=== PATIENT | male | born 1980 | race Caucasian/White ===

== ENCOUNTER 2017-06-21 17:06 | Emergency (ER) | payer OTHER ==
[~2017-06-21] VITALS: Ht 165.1 cm; Wt 77.1 kg
[2017-06-21 17:06] VITALS: BP_SYST 121
== END 2017-06-21 17:30 | disposition home or self-care (01) ==
LOC: SED 17:06
DX: Z76.0 Encounter for issue of repeat prescription (principal); F31.9 Bipolar disorder, unspecified; J45.909 Unspecified asthma, uncomplicated; Z88.8 Allergy status to other drugs, medicaments and biological substances
CPT/HCPCS: 99283

== ENCOUNTER 2017-10-02 07:52 | Emergency (ER) | payer OTHER, MEDICAID ==
[~2017-10-02] VITALS: Ht 165.1 cm; Wt 77.1 kg
[2017-10-02 07:54] VITALS: BP_SYST 123
[2017-10-02] MEDS ORDERED: LEVALBUTEROL HCL 0.63 MG/3 ML VIAL.NEB INH ONE (08:15)
[2017-10-02 08:45] VITALS: BP_SYST 120
== END 2017-10-02 08:45 | disposition home or self-care (01) ==
LOC: SED 07:52
DX: J45.901 Unspecified asthma with (acute) exacerbation (principal); J30.9 Allergic rhinitis, unspecified; Z88.8 Allergy status to other drugs, medicaments and biological substances
CPT/HCPCS: 94640; 99283; J7614

== ENCOUNTER 2019-09-30 20:05 | Emergency (ER) | payer OTHER, MEDICAID ==
[~2019-09-30] VITALS: Ht 165.1 cm; Wt 88.9 kg
[2019-09-30 20:33] VITALS: BP_SYST 154
[2019-09-30 20:59] LABS: BILIRUBIN,URINE NEGATIVE (NEGATIVE); BLOOD, URINE 1+ (NEGATIVE); CLARITY/URINE CLEAR (CLEAR); COLOR,URINE YELLOW (YELLOW); GLUCOSE,URINE NEGATIVE (NEGATIVE); KETONES,URINE NEGATIVE (NEGATIVE); LEUKOCYTE ESTERASE ,URINE NEGATIVE (NEGATIVE); NITRITE, URINE NEGATIVE (NEGATIVE); PROTEIN URINE NEGATIVE (NEGATIVE); UROBILINOGEN,URINE 0.2 (0.2-1.0)
[2019-09-30 21:15] LABS: BASOPHILS # (AUTO) 0.1 K/uL (0.0-0.2); EOSINOPHILS # (AUTO) 0.1 K/uL (0.0-0.4); EOSINOPHILS % (AUTO) 1.5 % (0.0-4.0); HEMATOCRIT 45.6 % (36-54); HEMOGLOBIN 15.4 g/dL (14.0-18.0); LYMPHOCYTES % (AUTO) 22.7 % (20.5-51.5); MEAN CORPUSCULAR HEMOGLOBIN 29 pg (27-31); MEAN CORPUSCULAR HGB CONC 34 % (32-36); MEAN CORPUSCULAR VOLUME 87 fL (79.0-98.0); MONOCYTES # (AUTO) 0.7 K/uL (0.0-1.0); MONOCYTES % (AUTO) 7.5 % (1.7-9.3); NEUTROPHILS % (AUTO) 67.3 % (40.0-70.0); PLATELET COUNT (AUTO) 284 K/uL (130-430); RED BLOOD CELL COUNT(AUTO) 5.23 MIL/uL (4.2-6.2); RED CELL DISTRIBUTION WIDTH 13.1 % (9.0-15.0); WHITE BLOOD COUNT (AUTO) 8.9 K/uL (4.8-10.8)
[2019-09-30 21:35] LABS: CALCIUM 8.6 mg/dL (8.4-11.0); CREATININE 0.91 mg/dL (0.55-1.30); POTASSIUM 3.4 mmol/L (3.5-5.1)
[2019-09-30 21:36] LABS: BACTERIA,URINE None Seen /HPF (None Seen); WBC,URINE NONE SEEN /HPF (0-3)
[2019-09-30 21:41] LABS: TOTAL BILIRUBIN 0.3 mg/dL (0.0-1.0)
== END 2019-09-30 22:30 | disposition left against medical advice (07) ==
LOC: SED 20:05
DX: R53.1 Weakness (principal); Z53.21 Procedure and treatment not carried out due to patient leaving prior to being seen by health care provider
CPT/HCPCS: 36415; 80053; 81000-TC; 85025

== ENCOUNTER 2019-12-11 16:02 | Emergency (ER) | payer OTHER, MEDICAID ==
--- NOTE | 2019-12-11 16:10 | NUR ---
Called patient x 1 , no answer
--- NOTE | 2019-12-11 16:20 | NUR ---
Called patient x 2 , no answer
--- NOTE | 2019-12-11 17:08 | NUR ---
Called patient x 3, no answer
== END 2019-12-11 16:10 | disposition left against medical advice (07) ==
LOC: SED 16:02
DX: Z00.8 Encounter for other general examination (principal); Z53.21 Procedure and treatment not carried out due to patient leaving prior to being seen by health care provider

== ENCOUNTER 2020-02-23 05:11 | Emergency (ER) | payer OTHER, MEDICAID ==
[~2020-02-23] VITALS: Ht 167.6 cm; Wt 74.8 kg
[2020-02-23 05:11] VITALS: BP_SYST 130
--- NOTE | 2020-02-23 05:11 | NUR ---
Placed in room 8 . Placed on ekg monitor, blood pressure machine and pulse oximeter. To gown for exam. Side rails up.
--- NOTE | 2020-02-23 05:15 | NUR ---
PT PRESENTS FROM HOME WITH CHEST PAIN NON-RADIATING. REPORTS WAKING UP 1 HOUR PRIOR TO ARRIVAL WITH 2/10 CHEST PAIN. DENIES ANY CARDIAC HX. REPORTS HX OF DEPRESSION AND ANXIETY. AAOX4, V/S STABLE
--- NOTE | 2020-02-23 05:20 | NUR ---
ER DR. NIEVES AT THE BEDSIDE EVALUATING PT
[2020-02-23] MEDS ORDERED: ASPIRIN 81 MG TAB.CHEW PO ONE (05:30)
--- NOTE | 2020-02-23 05:58 | NUR ---
Patient does not wish to proceed with medical care recommended by DR. NIEVES. Patient given information related to possible complications, up to and including , which could occur as a result of leaving hospital at this time. Patient verbalizes understanding of risks involved leaving against medical advice. Patient has signed AMA form.
== END 2020-02-23 05:58 | disposition left against medical advice (07) ==
LOC: SED 05:11
DX: R07.89 Other chest pain (principal); Z53.29 Procedure and treatment not carried out because of patient's decision for other reasons; J45.909 Unspecified asthma, uncomplicated; Z88.6 Allergy status to analgesic agent
CPT/HCPCS: 71045; 93005; 99283

== ENCOUNTER 2020-06-09 23:04 | Emergency (ER) | payer BC, MEDICAID ==
[~2020-06-09] VITALS: Ht 167.6 cm; Wt 90.7 kg
[2020-06-09 23:05] VITALS: BP_SYST 146
== END 2020-06-10 00:31 | disposition left against medical advice (07) ==
LOC: SED 23:04
DX: M79.673 Pain in unspecified foot (principal); Z53.21 Procedure and treatment not carried out due to patient leaving prior to being seen by health care provider

== ENCOUNTER 2021-08-03 15:16 | Emergency (ER) | payer BC, MEDICAID ==
--- NOTE | 2021-08-03 15:30 | NUR ---
Patient to ER bed 6 to gown for evaluation. Side rails up. Report given to SAMSON MERRITT.
[2021-08-03 15:40] VITALS: BP_SYST 139
--- NOTE | 2021-08-03 16:41 | NUR ---
PT ELOPED FOR ED. PD CALLED. PT'S CALLED TO ADVISE PT IS EN ROUTE HOME.
== END 2021-08-03 16:41 | disposition left against medical advice (07) ==
LOC: SED 15:16
DX: S93.402A Sprain of unspecified ligament of left ankle, initial encounter (principal); J45.909 Unspecified asthma, uncomplicated; F31.9 Bipolar disorder, unspecified; F20.9 Schizophrenia, unspecified; Z88.8 Allergy status to other drugs, medicaments and biological substances; Z79.899 Other long term (current) drug therapy; W10.8XXA Fall (on) (from) other stairs and steps, initial encounter; Y93.89 Activity, other specified; Y92.89 Other specified places as the place of occurrence of the external cause; Y99.8 Other external cause status
CPT/HCPCS: 93005; 99283

== ENCOUNTER 2021-08-13 09:20 | Emergency (ER) | payer BC, MEDICAID ==
[~2021-08-13] VITALS: Ht 165.1 cm; Wt 93.0 kg
[2021-08-13 09:20] VITALS: BP_SYST 133
[2021-08-13 09:25] VITALS: BP_SYST 133
[2021-08-13] MEDS ORDERED: TETRACAINE HCL/PF 0.5% OPHTHALMIC DROPS 4 ML OP ONE (09:30)
[2021-08-13] MEDS ORDERED: FLUORESCEIN SODIUM 1 MG OPHTHALMIC STRIP OP ONE (09:30)
== END 2021-08-13 09:25 | disposition home or self-care (01) ==
LOC: SED 09:20
DX: Z02.89 Encounter for other administrative examinations (principal)

== ENCOUNTER 2021-09-29 00:27 | Emergency (ER) | payer BC, MEDICAID ==
[~2021-09-29] VITALS: Ht 165.1 cm; Wt 90.7 kg
[2021-09-29 00:30] VITALS: BP_SYST 146
== END 2021-09-29 02:30 | disposition left against medical advice (07) ==
LOC: SED 00:27
DX: S99.921A Unspecified injury of right foot, initial encounter (principal); Z53.21 Procedure and treatment not carried out due to patient leaving prior to being seen by health care provider; X58.XXXA Exposure to other specified factors, initial encounter; Y93.89 Activity, other specified; Y92.89 Other specified places as the place of occurrence of the external cause; Y99.8 Other external cause status

== ENCOUNTER 2021-10-12 16:06 | Emergency (ER) | payer BC, MEDICAID ==
[~2021-10-12] VITALS: Ht 165.1 cm; Wt 115.7 kg
[2021-10-12 16:06] VITALS: BP_SYST 128
--- NOTE | 2021-10-12 16:06 | NUR ---
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 Speaking in full sentences without distress upon arrival. HR elevated (111) but otherwsie VSS on color television console monitor. Alert and oriented upon face to face assessment. Pending MD seay and initial EKG.
--- NOTE | 2021-10-12 16:06 | NUR ---
BROUGHT IN BY [facility], PLACED IN BED #7 AND TRIAGED. REPORT GIVEN TO JOVANI
--- NOTE | 2021-10-12 16:07 | NUR ---
ER Dr. Swan at bedside examining patient.
[2021-10-12] MEDS ORDERED: NACL 0.9% 1,000 ML IV ONE (16:15)
--- NOTE | 2021-10-12 16:44 | NUR ---
PT FOUND TO BE SCREAMING AT SOMEONE ON HIS PERSONAL CELLPHONE, PT THEN PULLED OUT IV AND ELOPED. DR SIMON AWARE
[2021-10-12 16:56] LABS: ANION GAP 7 (5-15); CALCIUM 8.4 mg/dL (8.4-11.0); CHLORIDE 103 mmol/L (98-107); CREATININE 1.09 mg/dL (0.55-1.30); GLUCOSE 283 mg/dL (70-99); POTASSIUM 3.8 mmol/L (3.5-5.1); SODIUM SERUM 139 mmol/L (136-145); UREA NITROGEN, BLOOD 14 mg/dL (8-21)
[2021-10-12 17:03] LABS: BASOPHILS % (AUTO) 0.5 % (0.0-2.0); EOSINOPHILS % (AUTO) 0.7 % (0.0-4.0); HEMATOCRIT 41.9 % (36-54); HEMOGLOBIN 14.2 g/dL (14.0-18.0); LYMPHOCYTES # (AUTO) 1.5 K/uL (1.0-5.5); LYMPHOCYTES % (AUTO) 22.1 % (20.5-51.5); MEAN CORPUSCULAR HEMOGLOBIN 29 pg (27-31); MEAN CORPUSCULAR HGB CONC 34 % (32-36); MEAN CORPUSCULAR VOLUME 85 fL (79.0-98.0); MONOCYTES # (AUTO) 0.5 K/uL (0.0-1.0); MONOCYTES % (AUTO) 8.1 % (1.7-9.3); NEUTROPHILS # (AUTO) 4.6 K/uL (1.8-7.7); NEUTROPHILS % (AUTO) 68.6 % (40.0-70.0); PLATELET COUNT (AUTO) 226 K/uL (130-430); RED CELL DISTRIBUTION WIDTH 13.3 % (9.0-15.0); WHITE BLOOD COUNT (AUTO) 6.7 K/uL (4.8-10.8)
[2021-10-12 17:04] LABS: ALANINE AMINOTRANSFERASE 63 U/L (12-78); ALBUMIN 3.1 g/dL (3.4-4.8); ASPARTATE AMINOTRANSFERASE 26 U/L (10-37); TOTAL BILIRUBIN 0.3 mg/dL (0.0-1.0)
[2021-10-12 17:14] LABS: GFR AFRICAN AMERICAN 96 mL/min (>90)
== END 2021-10-12 16:44 | disposition left against medical advice (07) ==
LOC: SED 16:06
DX: R07.89 Other chest pain (principal); J45.909 Unspecified asthma, uncomplicated; Z88.2 Allergy status to sulfonamides; Z88.8 Allergy status to other drugs, medicaments and biological substances; Z79.899 Other long term (current) drug therapy
CPT/HCPCS: 36415; 71045; 80053; 82550; 84484; 85025; 93005; 99285

== ENCOUNTER 2021-11-17 23:41 | Emergency (ER) | payer BC, MEDICAID ==
--- NOTE | 2021-11-17 23:49 | NUR ---
ATTEMPTED TO TRIAGE. CALLED OUT FOR PT, NO RESPONSE. PT NOT IN LOBBY.
--- NOTE | 2021-11-18 00:10 | NUR ---
CALLED PT FOR TRIAGE. NO RESPONSE. PT NOT FOUND IN TRIAGE ROOM.
--- NOTE | 2021-11-18 00:39 | NUR ---
ATTEMPTED TO TRIAGE PATIENT. PATIENT NOT FOUND IN LOBBY.
== END 2021-11-18 01:47 | disposition left against medical advice (07) ==
LOC: SED 23:41
DX: R10.9 Unspecified abdominal pain (principal); Z53.21 Procedure and treatment not carried out due to patient leaving prior to being seen by health care provider

== ENCOUNTER 2021-12-24 20:10 | Emergency (ER) | payer BC, MEDICAID ==
[~2021-12-24] VITALS: Ht 165.1 cm; Wt 90.7 kg
[2021-12-24 20:20] VITALS: BP_SYST 140
== END 2021-12-24 21:13 | disposition left against medical advice (07) ==
LOC: SED 20:10
DX: R00.0 Tachycardia, unspecified (principal); M25.562 Pain in left knee; Z53.21 Procedure and treatment not carried out due to patient leaving prior to being seen by health care provider
CPT/HCPCS: 93005

== ENCOUNTER 2022-04-13 12:41 | Emergency (ER) | payer BC, MEDICAID ==
[~2022-04-13] VITALS: Ht 165.1 cm; Wt 79.4 kg
[2022-04-13 12:41] VITALS: BP_SYST 113
--- NOTE | 2022-04-13 12:47 | NUR ---
PT LEFT WITHOUT BEING SEEN AFTER BEING TRIAGED. 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 PT THEN WANTED US TO PUT IT UNDER WORKMANS COMP, BUT STATES THAT HE WAS NOT AT WORK. PT STATES HIS LEFT ELBOW IS DISLOCATED BUT NO DEFORMITY, PT HAD GOOD ROM. STATES 10/10 PAIN, BUT MOVING LEFT ARM ALL OVER.
== END 2022-04-13 12:47 | disposition left against medical advice (07) ==
LOC: SED 12:41
DX: M25.522 Pain in left elbow (principal); Z53.21 Procedure and treatment not carried out due to patient leaving prior to being seen by health care provider

== ENCOUNTER 2022-05-18 17:06 | Emergency (ER) | payer BC, MEDICAID ==
[~2022-05-18] VITALS: Ht 165.1 cm; Wt 81.6 kg
[2022-05-18 17:06] VITALS: BP_SYST 116
--- NOTE | 2022-05-18 17:06 | NUR ---
Patient triaged and placed in waiting room. VSS and patient appears in no acute distress at this time. Accompanied by SELF, awaiting available bed, and MD notified of need for MSE.
--- NOTE | 2022-05-18 17:50 | NUR ---
TAKEN TO RADIOLOGY FOR TESTING
--- NOTE | 2022-05-18 18:11 | NUR ---
DR KEARNS OUT TO TRIAGE ROOM TO EVALUATE PT.
[2022-05-18] MEDS ORDERED: IBUP-1971 PO (18:16)
--- NOTE | 2022-05-18 18:57 | NUR ---
Brittney portillo in [facility] - 05/18/22 at 2036 by [email or web address] EMT gave sling for L shoulder , well tolerated
[2022-05-18 19:40] VITALS: BP_SYST 116
--- NOTE | 2022-05-18 19:40 | NUR ---
ATTEMPTED TO ASSES PATIENT AND DISCHARGE. PT LEFT WITHOUT DISCHARGE INSTRUCTIONS.
== END 2022-05-18 19:40 | disposition left against medical advice (07) ==
LOC: SED 17:06
DX: S43.402A Unspecified sprain of left shoulder joint, initial encounter (principal); J45.909 Unspecified asthma, uncomplicated; Z88.2 Allergy status to sulfonamides; Z88.8 Allergy status to other drugs, medicaments and biological substances; Z79.899 Other long term (current) drug therapy; W52.XXXA Crushed, pushed or stepped on by crowd or human stampede, initial encounter; Y93.89 Activity, other specified; Y92.89 Other specified places as the place of occurrence of the external cause; Y99.8 Other external cause status
CPT/HCPCS: 73000-TC; 99283

== ENCOUNTER 2022-07-25 04:10 | Emergency (ER) | payer BC, MEDICAID ==
[~2022-07-25] VITALS: Ht 165.1 cm; Wt 83.9 kg
[~2022-07-25 04:10] MED LIST: IBUP-1971 PO
[2022-07-25 04:16] VITALS: BP_SYST 119
--- NOTE | 2022-07-25 04:29 | NUR ---
TRIAGE ASSESSMENT COMPLETED. PT SDMITS TO SMOKING METH AND ETOH EARLIER THIS EVENING.
--- NOTE | 2022-07-25 04:43 | NUR ---
MD SOLISAW AT BEDSIDE FOR EVAL AND ORDERS.
[2022-07-25] MEDS ORDERED: LORazepam 2 MG/ML VIAL IVP ONE (04:45)
[2022-07-25] MEDS ORDERED: HALOPERIDOL LACTATE 5 MG/ML VIAL IVP ONE (04:45)
[2022-07-25] MEDS ORDERED: DIPHENHYDRAMINE INJ 50 MG/ML VIAL IVP ONE (04:45)
[2022-07-25] MEDS ORDERED: NACL 0.9% 1,000 ML IV ONE (04:45)
[2022-07-25 06:02] LABS: BASOPHILS # (AUTO) 0.1 K/uL (0.0-0.2); BASOPHILS % (AUTO) 0.6 % (0.0-2.0); EOSINOPHILS # (AUTO) 0.1 K/uL (0.0-0.4); EOSINOPHILS % (AUTO) 0.5 % (0.0-4.0); HEMATOCRIT 41.4 % (36-54); HEMOGLOBIN 13.8 g/dL (14.0-18.0); LYMPHOCYTES # (AUTO) 1.9 K/uL (1.0-5.5); LYMPHOCYTES % (AUTO) 12.7 % (20.5-51.5); MEAN CORPUSCULAR HEMOGLOBIN 29 pg (27-31); MEAN CORPUSCULAR HGB CONC 34 % (32-36); MEAN CORPUSCULAR VOLUME 87 fL (79.0-98.0); MONOCYTES # (AUTO) 0.9 K/uL (0.0-1.0); NEUTROPHILS # (AUTO) 12.1 K/uL (1.8-7.7); NEUTROPHILS % (AUTO) 80.2 % (40.0-70.0); PLATELET COUNT (AUTO) 259 K/uL (130-430); RED BLOOD CELL COUNT(AUTO) 4.76 MIL/uL (4.2-6.2); RED CELL DISTRIBUTION WIDTH 13.7 % (9.0-15.0)
[2022-07-25 06:16] LABS: CALCIUM 8.2 mg/dL (8.4-11.0); CREATININE 0.88 mg/dL (0.55-1.30)
[2022-07-25 06:21] LABS: ALBUMIN 3.5 g/dL (3.4-4.8); TOTAL BILIRUBIN 1.2 mg/dL (0.0-1.0)
[2022-07-25 07:15] VITALS: BP_SYST 128
--- NOTE | 2022-07-25 07:18 | NUR ---
Received patient from triage, is alert and oriented x3, c/o not feeling well, abdominal pain, placed #20 gauge at right hand, nss 1liter boluse, ativan ivp, benadryl ivp and haldol ivp given. Patient tolerated well. Abdominal CT done, patient is asleep and snoring, plan d/c after woke up.
[2022-07-25 08:15] LABS: BILIRUBIN,URINE NEGATIVE (NEGATIVE); CLARITY/URINE CLEAR (CLEAR); COLOR,URINE YELLOW (YELLOW); GLUCOSE,URINE NEGATIVE (NEGATIVE); KETONES,URINE 3+ (NEGATIVE); LEUKOCYTE ESTERASE ,URINE NEGATIVE (NEGATIVE); NITRITE, URINE NEGATIVE (NEGATIVE); PROTEIN URINE NEGATIVE (NEGATIVE); UROBILINOGEN,URINE 0.2 (0.2-1.0)
[2022-07-25 08:19] LABS: BLOOD, URINE TRACE (NEGATIVE)
[2022-07-25 08:28] LABS: BACTERIA,URINE RARE /HPF (None Seen); MUCUS,URINE 1+ /LPF (None Seen); RBC,URINE 0-3 /HPF (0-3); WBC,URINE 0-3 /HPF (0-3)
[2022-07-25 08:29] LABS: BARBITURATE, URINE NEGATIVE (NEG <=200); BENZODIAZEPINE, URINE POSITIVE (NEG <=150); METHAMPHETAMINES SCREEN,URINE POSITIVE (NEG <=500); URINE AMPHETAMINE POSITIVE (NEG <=500); URINE METHADONE NEGATIVE (NEG <=200)
[2022-07-25 08:30] LABS: CANNABINOID, URINE POSITIVE (NEG <=50); COCAINE, URINE NEGATIVE (NEG <=150); OPIATE, URINE NEGATIVE (NEG <=100); PHENCYCLIDINE SCREEN,URINE NEGATIVE (NEG <=25); UR TRICYCLIC ANTIDEPRESSANTS NEGATIVE (NEG <=300); URINE OXYCODONE SCREEN NEGATIVE (NEG <=100); URINE PROPOXYPHENE SCREEN NEGATIVE (NEG <=300)
--- NOTE | 2022-07-25 08:51 | NUR ---
Patient given written and verbal discharge instructions and verbalizes understanding. ER MD discussed with patient the results and treatment provided. Patient in stable condition. ID arm band removed. Rx of NONE given. Patient educated on pain management and to follow up with PMD. Pain Scale 0/10. Opportunity for questions provided and answered. Medication side effect fact sheet provided.
[2022-07-26] MEDS ORDERED: ACET-2634 PO (04:01)
[2022-07-26] MEDS ORDERED: LIDO1ADH71 TD (04:01)
== END 2022-07-25 08:51 | disposition home or self-care (01) ==
LOC: SED 04:10
DX: K85.90 Acute pancreatitis without necrosis or infection, unspecified (principal); K46.9 Unspecified abdominal hernia without obstruction or gangrene; R10.33 Periumbilical pain; F15.129 Other stimulant abuse with intoxication, unspecified; F12.929 Cannabis use, unspecified with intoxication, unspecified; J45.909 Unspecified asthma, uncomplicated; Z88.2 Allergy status to sulfonamides; Z88.8 Allergy status to other drugs, medicaments and biological substances; Z79.899 Other long term (current) drug therapy
CPT/HCPCS: 99285; 74176; 96374; 96375; 96361; 80307; 80053; 83690; 85025; 36415; 76376; 81000; J1200; J1630; J2060; J7030

== ENCOUNTER 2022-07-26 03:14 | Emergency (ER) | payer BC, MEDICAID ==
[2022-07-26 03:34] VITALS: BP_SYST 140
--- NOTE | 2022-07-26 03:38 | NUR ---
Patient to ER bed 5 to gown for evaluation. Side rails up. Report given to david christopher.
[2022-07-26 03:52] LABS: BASOPHILS # (AUTO) 0.1 K/uL (0.0-0.2); BASOPHILS % (AUTO) 0.7 % (0.0-2.0); EOSINOPHILS # (AUTO) 0.1 K/uL (0.0-0.4); EOSINOPHILS % (AUTO) 0.5 % (0.0-4.0); HEMATOCRIT 39.3 % (36-54); HEMOGLOBIN 13.3 g/dL (14.0-18.0); LYMPHOCYTES # (AUTO) 2.6 K/uL (1.0-5.5); LYMPHOCYTES % (AUTO) 16.4 % (20.5-51.5); MEAN CORPUSCULAR HEMOGLOBIN 29 pg (27-31); MEAN CORPUSCULAR HGB CONC 34 % (32-36); MEAN CORPUSCULAR VOLUME 86 fL (79.0-98.0); MONOCYTES # (AUTO) 0.9 K/uL (0.0-1.0); MONOCYTES % (AUTO) 5.7 % (1.7-9.3); NEUTROPHILS # (AUTO) 12.2 K/uL (1.8-7.7); NEUTROPHILS % (AUTO) 76.7 % (40.0-70.0); PLATELET COUNT (AUTO) 257 K/uL (130-430); RED BLOOD CELL COUNT(AUTO) 4.59 MIL/uL (4.2-6.2); RED CELL DISTRIBUTION WIDTH 13.9 % (9.0-15.0); WHITE BLOOD COUNT (AUTO) 15.9 K/uL (4.8-10.8)
[2022-07-26] MEDS ORDERED: MAG-AL HYDROX/SIMETH 30 ML UDC PO ONE (04:00)
[2022-07-26] MEDS ORDERED: LIDO1ADH71 TD (04:01)
[2022-07-26] MEDS ORDERED: ACET-2634 PO (04:01)
[2022-07-26 04:04] LABS: CALCIUM 8.7 mg/dL (8.4-11.0); CREATININE 0.96 mg/dL (0.55-1.30)
[2022-07-26 04:09] LABS: ALBUMIN 3.4 g/dL (3.4-4.8); TOTAL BILIRUBIN 1.2 mg/dL (0.0-1.0)
[2022-07-26 04:19] VITALS: BP_SYST 110
--- NOTE | 2022-07-26 04:21 | NUR ---
Patient given written and verbal discharge instructions and verbalizes understanding. ER MD discussed with patient the results and treatment provided. Patient in stable condition. Rx of Lidocain Patch and tylenol given. Patient educated on pain management and to follow up with PMD. Pain Scale . Opportunity for questions provided and answered. Medication side effect fact sheet provided.
== END 2022-07-26 04:20 | disposition home or self-care (01) ==
LOC: SED 03:14
DX: R25.2 Cramp and spasm (principal); Z88.2 Allergy status to sulfonamides; Z88.8 Allergy status to other drugs, medicaments and biological substances; Z79.899 Other long term (current) drug therapy
CPT/HCPCS: 99283; 80053; 85025; 36415; G0482

== ENCOUNTER 2022-07-26 20:37 | Emergency (ER) | payer BC, MEDICAID ==
[~2022-07-26] VITALS: Ht 165.1 cm; Wt 86.2 kg
[~2022-07-26 20:37] MED LIST changes: +ACET-2634 PO; +LIDO1ADH71 TD
--- NOTE | 2022-07-26 20:47 | NUR ---
Brittney [email or web address] in [facility] - 07/26/22 at 2048 by [email or web address] Patient arrived with mary kay in place, removed by dr. rabago.
[2022-07-26 20:57] VITALS: BP_SYST 135
--- NOTE | 2022-07-26 21:01 | NUR ---
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 NO OBVIOUS DEFORMITY PER PT, HE'S A GUIDE TRAVEL. PT AMBLE TO AMBULATE W/ NO ASSISTIVE DEVICE IN AND OUT OF THE HOSPITAL.
--- NOTE | 2022-07-26 21:04 | NUR ---
PT LEFT AFTER TRIAGE.
== END 2022-07-26 21:04 | disposition left against medical advice (07) ==
LOC: SED 20:37
DX: M25.572 Pain in left ankle and joints of left foot (principal); J45.909 Unspecified asthma, uncomplicated; Z88.2 Allergy status to sulfonamides; Z88.8 Allergy status to other drugs, medicaments and biological substances; Z53.21 Procedure and treatment not carried out due to patient leaving prior to being seen by health care provider
CPT/HCPCS: 99281

== ENCOUNTER 2022-08-03 02:56 | Emergency (ER) | payer BC, MEDICAID | END 2022-08-03 03:15 | disposition left against medical advice (07) | LOC: SED 02:56 | DX: M79.605 Pain in left leg (principal); Z53.21 Procedure and treatment not carried out due to patient leaving prior to being seen by health care provider ==

== ENCOUNTER 2022-08-10 16:21 | Emergency (ER) | payer BC, MEDICAID | END 2022-08-10 16:30 | disposition left against medical advice (07) | LOC: SED 16:21 | DX: Z53.21 Procedure and treatment not carried out due to patient leaving prior to being seen by health care provider (principal) ==

== ENCOUNTER 2022-09-28 21:46 | Emergency (ER) | payer BC, MEDICAID ==
[~2022-09-28] VITALS: Ht 165.1 cm; Wt 83.9 kg
[2022-09-28 22:05] VITALS: BP_SYST 134
[2022-09-28] MEDS ORDERED: BACLOFEN 10 MG TABLET PO ONE (22:30)
[2022-09-28] MEDS ORDERED: KETOROLAC TROMETHAMINE 30 MG VIAL IM ONE (22:30)
[2022-09-28] MEDS ORDERED: LIDOCAINE PATCH 5% 1 EA TP ONE (22:30)
[2022-09-28] MEDS ORDERED: ACETAMINOPHEN 500 MG TABLET PO ONE (22:30)
[2022-09-28] MEDS ORDERED: BACLOFEN 10 MG TABLET ONE (22:57)
[2022-09-28 23:06] VITALS: BP_SYST 130
[2022-09-28] MEDS ORDERED: DICL20GE TP (23:49)
[2022-09-28] MEDS ORDERED: IBUP-1969 PO (23:49)
[2022-09-28] MEDS ORDERED: NAPR-1172 PO (23:49)
== END 2022-09-28 23:42 | disposition home or self-care (01) ==
LOC: SED 21:46
DX: M75.42 Impingement syndrome of left shoulder (principal); M89.512 Osteolysis, left shoulder; M25.512 Pain in left shoulder; M25.552 Pain in left hip; M25.532 Pain in left wrist; J45.909 Unspecified asthma, uncomplicated; F14.99 Cocaine use, unspecified with unspecified cocaine-induced disorder; Z88.8 Allergy status to other drugs, medicaments and biological substances; Z79.899 Other long term (current) drug therapy
CPT/HCPCS: 99284; 73000; 73030; 96372; J1885

== ENCOUNTER 2022-10-12 20:16 | Emergency (ER) | payer BC, MEDICAID ==
[~2022-10-12] VITALS: Ht 165.1 cm; Wt 83.9 kg
[~2022-10-12 20:16] MED LIST changes: +DICL20GE TP; +IBUP-1969 PO; +NAPR-1172 PO
[2022-10-12 20:24] VITALS: BP_SYST 141
[2022-10-12] MEDS ORDERED: ALBMDI INH (20:25)
[2022-10-12 20:28] VITALS: BP_SYST 141
== END 2022-10-12 20:28 | disposition home or self-care (01) ==
LOC: SED 20:16
DX: Z76.0 Encounter for issue of repeat prescription (principal); J45.909 Unspecified asthma, uncomplicated; F14.99 Cocaine use, unspecified with unspecified cocaine-induced disorder; Z88.8 Allergy status to other drugs, medicaments and biological substances; Z79.899 Other long term (current) drug therapy
CPT/HCPCS: 99281

== ENCOUNTER 2022-10-27 23:01 | Emergency (ER) | payer OTHER, MEDICAID ==
[~2022-10-27] VITALS: Ht 165.1 cm; Wt 86.2 kg
[~2022-10-27 23:01] MED LIST changes: +ALBMDI INH
--- NOTE | 2022-10-27 23:11 | NUR ---
PATIENT PRESENTS WIT LEFT EAR PAIN X10 MONTHS, THROAT PAIN X2 DAYS 10/24
[2022-10-27 23:12] VITALS: BP_SYST 137; PULSE 101; RESP 18; TEMP 96.4; O2SAT 99
--- NOTE | 2022-10-27 23:29 | NUR ---
REPORT GIVEN TO GORDON MERRITT, PATIENT PLACED IN [facility]
--- NOTE | 2022-10-27 23:30 | NUR ---
PT BIB SELF FROM THE STREET C/O INTERMITTANT EAR PAIN /10 AND SORE THROAT. PT HX OF ASTHMA AND SC LAST YEAR. PT IS AAO X 4. PT IS RESTING COMFORTABLY IN CHAIR VSS
--- NOTE | 2022-10-27 23:41 | NUR ---
Dr. Chamorro with patient in triage for MSE.
[2022-10-27] MEDS ORDERED: CETI10CA11 PO (23:45)
[2022-10-27] MEDS ORDERED: IBUP-1969 PO (23:48)
[2022-10-28] MEDS ORDERED: IBUPROFEN 600 MG TABLET PO ONE
--- NOTE | 2022-10-28 | NUR ---
Patient given written and verbal discharge instructions and verbalizes understanding. ER MD discussed with patient the results and treatment provided. Patient in stable condition. ID arm band removed. Rx of CETIRIZINE given. Patient educated on PHARYNGITIS and to follow up with PMD. Pain Scale . Opportunity for questions provided and answered. Medication side effect fact sheet provided.
[2022-10-28 00:05] VITALS: BP_SYST 137; PULSE 101; RESP 18; TEMP 96.4; O2SAT 99
== END 2022-10-28 00:02 | disposition home or self-care (01) ==
LOC: SED 23:01
DX: J02.9 Acute pharyngitis, unspecified (principal); H92.02 Otalgia, left ear; J45.909 Unspecified asthma, uncomplicated; F14.99 Cocaine use, unspecified with unspecified cocaine-induced disorder; Z88.2 Allergy status to sulfonamides; Z88.8 Allergy status to other drugs, medicaments and biological substances; Z79.899 Other long term (current) drug therapy
CPT/HCPCS: 99282

== ENCOUNTER 2022-11-07 23:52 | Emergency (ER) | payer OTHER, MEDICAID ==
[~2022-11-07 23:52] MED LIST changes: +CETI10CA11 PO
--- NOTE | 2022-11-08 00:15 | NUR ---
Patient called in x 3, no answer
--- NOTE | 2022-11-08 00:15 | NUR ---
Patient left without being triaged. No further care provided. ER MD aware
== END 2022-11-08 00:15 | disposition left against medical advice (07) ==
LOC: SED 23:52
DX: Z53.21 Procedure and treatment not carried out due to patient leaving prior to being seen by health care provider (principal)

== ENCOUNTER 2022-12-07 18:46 | Emergency (ER) | payer OTHER, MEDICAID ==
[~2022-12-07] VITALS: Ht 167.6 cm; Wt 72.6 kg
[2022-12-07 19:03] VITALS: BP_SYST 142; PULSE 102; RESP 20; TEMP 98.4; O2SAT 98
[2022-12-07] MEDS ORDERED: MORPHINE 4 MG INJ. 4 MG/ML VIAL IVP ONE (19:15)
[2022-12-07] MEDS ORDERED: LORazepam 2 MG/ML VIAL IVP ONE (19:15)
[2022-12-07] MEDS ORDERED: NACL 0.9% 1,000 ML IV ONE (19:15)
== END 2022-12-07 19:20 | disposition left against medical advice (07) ==
LOC: SED 18:46
DX: R10.9 Unspecified abdominal pain (principal); Z53.21 Procedure and treatment not carried out due to patient leaving prior to being seen by health care provider
CPT/HCPCS: 99281

== ENCOUNTER 2022-12-08 02:44 | Emergency (ER) | payer OTHER, MEDICAID ==
[~2022-12-08] VITALS: Ht 165.1 cm; Wt 88.5 kg
[2022-12-08 03:01] VITALS: BP_SYST 136; PULSE 80; RESP 18; TEMP 98; O2SAT 100
[2022-12-08] MEDS ORDERED: LORazepam 2 MG/ML VIAL IVP ONE (03:30)
[2022-12-08] MEDS ORDERED: NACL 0.9% 1,000 ML IV ONE (03:30)
[2022-12-08] MEDS ORDERED: KETOROLAC TROMETHAMINE 15 MG VIAL IVP ONE (03:30)
[2022-12-08 03:55] LABS: BASOPHILS % (AUTO) 0.2 % (0.0-2.0); EOSINOPHILS # (AUTO) 0.1 K/uL (0.0-0.4); EOSINOPHILS % (AUTO) 0.3 % (0.0-4.0); HEMATOCRIT 48.7 % (36-54); HEMOGLOBIN 15.7 g/dL (14.0-18.0); LYMPHOCYTES # (AUTO) 1.3 K/uL (1.0-5.5); LYMPHOCYTES % (AUTO) 6.1 % (20.5-51.5); MEAN CORPUSCULAR HEMOGLOBIN 28 pg (27-31); MEAN CORPUSCULAR HGB CONC 32 % (32-36); MEAN CORPUSCULAR VOLUME 86 fL (79.0-98.0); MONOCYTES % (AUTO) 4.8 % (1.7-9.3); NEUTROPHILS # (AUTO) 19.2 K/uL (1.8-7.7); NEUTROPHILS % (AUTO) 88.6 % (40.0-70.0); PLATELET COUNT (AUTO) 297 K/uL (130-430); RED BLOOD CELL COUNT(AUTO) 5.69 MIL/uL (4.2-6.2); RED CELL DISTRIBUTION WIDTH 13.5 % (9.0-15.0); WHITE BLOOD COUNT (AUTO) 21.6 K/uL (4.8-10.8)
[2022-12-08 04:03] LABS: CREATININE 1.06 mg/dL (0.55-1.30); POTASSIUM 3.6 mmol/L (3.5-5.1)
[2022-12-08 04:07] LABS: ALBUMIN 4.4 g/dL (3.4-4.8); TOTAL BILIRUBIN 1.1 mg/dL (0.0-1.0); TOTAL PROTEIN, SERUM 8.1 g/dL (6.4-8.3)
== END 2022-12-08 03:56 | disposition left against medical advice (07) ==
LOC: SED 02:44
DX: K42.9 Umbilical hernia without obstruction or gangrene (principal); F15.90 Other stimulant use, unspecified, uncomplicated; R10.13 Epigastric pain; R10.11 Right upper quadrant pain; J45.909 Unspecified asthma, uncomplicated; Z88.2 Allergy status to sulfonamides; Z88.8 Allergy status to other drugs, medicaments and biological substances; Z79.899 Other long term (current) drug therapy
CPT/HCPCS: 36415; 76376; 80053; 83690; 85025; 99284

== ENCOUNTER 2022-12-08 22:40 | Emergency (ER) | payer OTHER, MEDICAID ==
[~2022-12-08] VITALS: Ht 165.1 cm; Wt 91.6 kg
[2022-12-08 22:53] VITALS: BP_SYST 133; PULSE 100; RESP 17; TEMP 97.7; O2SAT 100
== END 2022-12-08 23:35 | disposition left against medical advice (07) ==
LOC: SED 22:40
DX: I10 Essential (primary) hypertension (principal); R51.9 Headache, unspecified; Z53.21 Procedure and treatment not carried out due to patient leaving prior to being seen by health care provider
CPT/HCPCS: 99281

== ENCOUNTER 2022-12-15 23:27 | Emergency (ER) | payer OTHER, MEDICAID | END 2022-12-16 00:11 | disposition left against medical advice (07) | LOC: SED 23:27 | DX: Z00.00 Encounter for general adult medical examination without abnormal findings (principal); Z53.21 Procedure and treatment not carried out due to patient leaving prior to being seen by health care provider ==

== ENCOUNTER 2022-12-31 02:00 | Emergency (ER) | payer OTHER, MEDICAID ==
[2022-12-31] MEDS ORDERED: KETOROLAC TROMETHAMINE 30 MG VIAL ONE (03:12)
== END 2022-12-31 02:21 | disposition left against medical advice (07) ==
LOC: SED 02:00
DX: K62.5 Hemorrhage of anus and rectum (principal); Z53.21 Procedure and treatment not carried out due to patient leaving prior to being seen by health care provider
CPT/HCPCS: J1885

== ENCOUNTER 2023-03-09 01:02 | Emergency (ER) | payer OTHER, MEDICAID ==
[~2023-03-09] VITALS: Ht 165.1 cm; Wt 86.2 kg
[2023-03-09 01:14] VITALS: BP_SYST 129; PULSE 108; RESP 16; TEMP 97.9; O2SAT 97
[2023-03-09 01:15] VITALS: BP_SYST 129; PULSE 108; RESP 16; TEMP 97.9; O2SAT 97
[2023-03-09 02:00] LABS: BILIRUBIN,URINE NEGATIVE (NEGATIVE); COLOR,URINE YELLOW (YELLOW); GLUCOSE,URINE NEGATIVE (NEGATIVE); KETONES,URINE NEGATIVE (NEGATIVE); LEUKOCYTE ESTERASE ,URINE NEGATIVE (NEGATIVE); NITRITE, URINE NEGATIVE (NEGATIVE); PH,URINE 6.5 (5.0-8.0); PROTEIN URINE NEGATIVE (NEGATIVE); UROBILINOGEN,URINE 0.2 (0.2-1.0)
[2023-03-09 02:09] LABS: BLOOD, URINE TRACE (NEGATIVE); CLARITY/URINE HAZY (CLEAR)
[2023-03-09 02:10] LABS: BACTERIA,URINE None Seen /HPF (None Seen); WBC,URINE 0-3 /HPF (0-3)
[2023-03-09] MEDS ORDERED: POTASSIUM CHLORIDE 20 MEQ TAB.PRT.SR PO ONE (02:15)
[2023-03-09] MEDS ORDERED: IBUPROFEN 400 MG TABLET PO ONE (02:15)
[2023-03-09 02:36] LABS: BASOPHILS # (AUTO) 0.1 K/uL (0.0-0.2); BASOPHILS % (AUTO) 0.9 % (0.0-2.0); EOSINOPHILS # (AUTO) 0.1 K/uL (0.0-0.4); EOSINOPHILS % (AUTO) 0.6 % (0.0-4.0); HEMATOCRIT 38.6 % (36-54); LYMPHOCYTES # (AUTO) 1.6 K/uL (1.0-5.5); LYMPHOCYTES % (AUTO) 17.4 % (20.5-51.5); MEAN CORPUSCULAR HEMOGLOBIN 29 pg (27-31); MEAN CORPUSCULAR HGB CONC 34 % (32-36); MEAN CORPUSCULAR VOLUME 85 fL (79.0-98.0); MONOCYTES # (AUTO) 0.7 K/uL (0.0-1.0); MONOCYTES % (AUTO) 7.1 % (1.7-9.3); PLATELET COUNT (AUTO) 346 K/uL (130-430); RED BLOOD CELL COUNT(AUTO) 4.56 MIL/uL (4.2-6.2); RED CELL DISTRIBUTION WIDTH 12.9 % (9.0-15.0); WHITE BLOOD COUNT (AUTO) 9.4 K/uL (4.8-10.8)
[2023-03-09 02:44] LABS: CALCIUM 8.5 mg/dL (8.4-11.0); CREATININE 0.88 mg/dL (0.55-1.30); POTASSIUM 3.1 mmol/L (3.5-5.1)
[2023-03-09 03:06] LABS: CKMB RELATIVE INDEX 0.6 (0.0-2.9); CREATINE KINASE MB 5.3 ng/mL (0-3.6)
== END 2023-03-09 02:28 | disposition left against medical advice (07) ==
LOC: SED 01:02
DX: M79.662 Pain in left lower leg (principal); F19.20 Other psychoactive substance dependence, uncomplicated; J45.909 Unspecified asthma, uncomplicated; Z88.8 Allergy status to other drugs, medicaments and biological substances; Z79.899 Other long term (current) drug therapy
CPT/HCPCS: 36415; 80048; 81000; 81001; 81015; 82550; 82553; 85025; 99283

== ENCOUNTER 2023-03-15 07:00 | Emergency (ER) | payer OTHER, MEDICAID ==
[~2023-03-15] VITALS: Ht 165.1 cm; Wt 88.5 kg
[2023-03-15 07:15] VITALS: BP_SYST 126; PULSE 95; RESP 19; TEMP 97.4; O2SAT 97
[2023-03-15] MEDS ORDERED: DIPHTH,PERTUSS(ACELL),TET VAC 0.5 ML VIAL (Tdap) I.M. ONE (07:45)
[2023-03-15 07:53] VITALS: BP_SYST 126; PULSE 95; RESP 19; TEMP 97.4; O2SAT 97
== END 2023-03-15 07:46 | disposition home or self-care (01) ==
LOC: SED 07:00
DX: Z23 Encounter for immunization (principal); J45.909 Unspecified asthma, uncomplicated; Z88.2 Allergy status to sulfonamides; Z88.8 Allergy status to other drugs, medicaments and biological substances; Z79.899 Other long term (current) drug therapy
CPT/HCPCS: 90715; 99283

== ENCOUNTER 2023-06-09 16:14 | Emergency (ER) | payer OTHER, MEDICAID ==
[~2023-06-09] VITALS: Ht 165.1 cm; Wt 83.9 kg
[2023-06-09 16:56] VITALS: BP_SYST 135; PULSE 94; RESP 18; TEMP 97.7; O2SAT 99
[2023-06-09] MEDS ORDERED: METH-776 PO (17:11)
[2023-06-09] MEDS ORDERED: ALBMDI INH (17:11)
[2023-06-09] MEDS: IPRATROPIUM/ALBUTEROL SULFATE 3 ML AMPUL.NEB (DUONEB) INH ONE (17:24)
[2023-06-09 17:35] VITALS: BP_SYST 135; PULSE 94; RESP 18; TEMP 97.7; O2SAT 99
== END 2023-06-09 17:35 | disposition home or self-care (01) ==
LOC: SED 16:14
DX: J45.901 Unspecified asthma with (acute) exacerbation (principal); Z88.8 Allergy status to other drugs, medicaments and biological substances; Z79.899 Other long term (current) drug therapy
CPT/HCPCS: 93005; 94640; 99283

== ENCOUNTER 2023-06-20 19:59 | Emergency (ER) | payer OTHER, MEDICAID ==
[~2023-06-20] VITALS: Ht 165.1 cm; Wt 83.9 kg
[~2023-06-20 19:59] MED LIST changes: +METH-776 PO
[2023-06-20 20:00] VITALS: BP_SYST 137; PULSE 117; RESP 20; TEMP 98.3; O2SAT 96
[2023-06-20 21:12] VITALS: BP_SYST 137; PULSE 117; RESP 20; TEMP 98.3; O2SAT 96
== END 2023-06-20 21:12 | disposition left against medical advice (07) ==
LOC: SED 19:59
DX: R21 Rash and other nonspecific skin eruption (principal); Z79.899 Other long term (current) drug therapy
CPT/HCPCS: 99281

== ENCOUNTER 2023-06-25 21:24 | Emergency (ER) | payer OTHER, MEDICAID ==
[~2023-06-25] VITALS: Ht 165.1 cm; Wt 86.2 kg
[2023-06-25 21:47] VITALS: BP_SYST 156; PULSE 125; RESP 16; TEMP 98.1; O2SAT 98
== END 2023-06-25 22:05 | disposition left against medical advice (07) ==
LOC: SED 21:24
DX: F41.9 Anxiety disorder, unspecified (principal); R10.9 Unspecified abdominal pain; R11.0 Nausea; Z53.21 Procedure and treatment not carried out due to patient leaving prior to being seen by health care provider
CPT/HCPCS: 99281

== ENCOUNTER 2023-07-12 22:44 | Emergency (ER) | payer OTHER, MEDICAID ==
[~2023-07-12] VITALS: Ht 165.1 cm; Wt 85.7 kg
[2023-07-12 23:21] VITALS: BP_SYST 139; PULSE 113; RESP 20; TEMP 98; O2SAT 100
[2023-07-13] MEDS ORDERED: NAPR-1172 PO (00:22)
[2023-07-13] MEDS: KETOROLAC TROMETHAMINE 60 MG/2 ML VIAL IM ONE (00:25)
[2023-07-13 00:28] VITALS: BP_SYST 139; PULSE 113; RESP 20; TEMP 98; O2SAT 100
== END 2023-07-13 00:28 | disposition home or self-care (01) ==
LOC: SED 22:44
DX: S86.811A Strain of other muscle(s) and tendon(s) at lower leg level, right leg, initial encounter (principal); S86.812A Strain of other muscle(s) and tendon(s) at lower leg level, left leg, initial encounter; J45.909 Unspecified asthma, uncomplicated; Z88.8 Allergy status to other drugs, medicaments and biological substances; Z79.899 Other long term (current) drug therapy; W21.12XA Struck by tennis racquet, initial encounter; Y93.73 Activity, racquet and hand sports; Y92.89 Other specified places as the place of occurrence of the external cause; Y99.8 Other external cause status
CPT/HCPCS: 99283; 96372; J1885

== ENCOUNTER 2023-07-13 17:52 | Emergency (ER) | payer OTHER, MEDICAID ==
[~2023-07-13] VITALS: Ht 157.5 cm; Wt 77.1 kg
[2023-07-13 18:00] VITALS: BP_SYST 143; PULSE 116; RESP 18; TEMP 98.3; O2SAT 98
== END 2023-07-13 19:00 | disposition left against medical advice (07) ==
LOC: SED 17:52
DX: M79.661 Pain in right lower leg (principal); M79.662 Pain in left lower leg; Z53.21 Procedure and treatment not carried out due to patient leaving prior to being seen by health care provider
CPT/HCPCS: 99281

== ENCOUNTER 2023-07-26 01:57 | Emergency (ER) | payer OTHER, MEDICAID ==
[~2023-07-26] VITALS: Ht 165.1 cm; Wt 88.0 kg
[2023-07-26 02:11] VITALS: BP_SYST 143; PULSE 105; RESP 16; TEMP 98.9; O2SAT 98
[2023-07-26 03:13] VITALS: BP_SYST 139; PULSE 95; RESP 16; TEMP 98.9; O2SAT 98
== END 2023-07-26 03:13 | disposition home or self-care (01) ==
LOC: SED 01:57
DX: L27.0 Generalized skin eruption due to drugs and medicaments taken internally (principal); J45.909 Unspecified asthma, uncomplicated; Z88.8 Allergy status to other drugs, medicaments and biological substances; Z79.899 Other long term (current) drug therapy
CPT/HCPCS: 99281

== ENCOUNTER 2023-11-13 22:10 | Emergency (ER) | payer OTHER, MEDICAID ==
[~2023-11-13] VITALS: Ht 165.1 cm; Wt 90.7 kg
[2023-11-13 22:15] VITALS: BP_SYST 120; PULSE 70; RESP 20; TEMP 98.9; O2SAT 95
== END 2023-11-13 22:20 | disposition left against medical advice (07) ==
LOC: SED 22:10
DX: R10.9 Unspecified abdominal pain (principal); Z53.21 Procedure and treatment not carried out due to patient leaving prior to being seen by health care provider

== ENCOUNTER 2023-11-23 12:33 | Emergency (ER) | payer OTHER, MEDICAID ==
[~2023-11-23] VITALS: Ht 165.1 cm; Wt 86.2 kg
[2023-11-23 12:37] VITALS: BP_SYST 140; PULSE 115; RESP 22; TEMP 98.3; O2SAT 98
[2023-11-23 14:12] LABS: BASOPHILS # (AUTO) 0.1 K/uL (0.0-0.2); BASOPHILS % (AUTO) 0.6 % (0.0-2.0); EOSINOPHILS # (AUTO) 0.1 K/uL (0.0-0.4); EOSINOPHILS % (AUTO) 1.2 % (0.0-4.0); HEMATOCRIT 43.4 % (36-54); HEMOGLOBIN 14.9 g/dL (14.0-18.0); LYMPHOCYTES # (AUTO) 2.7 K/uL (1.0-5.5); LYMPHOCYTES % (AUTO) 28.4 % (20.5-51.5); MEAN CORPUSCULAR HEMOGLOBIN 29 pg (27-31); MEAN CORPUSCULAR HGB CONC 34 % (32-36); MEAN CORPUSCULAR VOLUME 84 fL (79.0-98.0); MONOCYTES # (AUTO) 0.6 K/uL (0.0-1.0); MONOCYTES % (AUTO) 6.9 % (1.7-9.3); NEUTROPHILS # (AUTO) 5.9 K/uL (1.8-7.7); NEUTROPHILS % (AUTO) 62.9 % (40.0-70.0); PLATELET COUNT (AUTO) 305 K/uL (130-430); RED BLOOD CELL COUNT(AUTO) 5.16 MIL/uL (4.2-6.2); RED CELL DISTRIBUTION WIDTH 13.2 % (9.0-15.0); WHITE BLOOD COUNT (AUTO) 9.3 K/uL (4.8-10.8)
[2023-11-23 14:51] LABS: CALCIUM 8.7 mg/dL (8.4-11.0); CREATININE 0.91 mg/dL (0.55-1.30); POTASSIUM 3.8 mmol/L (3.5-5.1)
== END 2023-11-23 14:10 | disposition home or self-care (01) ==
LOC: SED 12:33
DX: R42 Dizziness and giddiness (principal); J45.909 Unspecified asthma, uncomplicated; F31.9 Bipolar disorder, unspecified; I25.2 Old myocardial infarction; Z88.8 Allergy status to other drugs, medicaments and biological substances; Z79.899 Other long term (current) drug therapy; Z79.2 Long term (current) use of antibiotics
CPT/HCPCS: 36415; 80048; 82948; 83605; 85025; 93005; 99284

== ENCOUNTER 2023-12-15 03:03 | Emergency (ER) | payer OTHER, MEDICAID ==
[~2023-12-15] VITALS: Ht 172.7 cm; Wt 83.9 kg
[2023-12-15 03:05] VITALS: BP_SYST 175; PULSE 118; RESP 24; TEMP 97.7; O2SAT 98
== END 2023-12-15 03:25 ==
LOC: SED 03:03
DX: Z02.89 Encounter for other administrative examinations (principal); K46.9 Unspecified abdominal hernia without obstruction or gangrene; J45.909 Unspecified asthma, uncomplicated; Z88.2 Allergy status to sulfonamides; Z88.8 Allergy status to other drugs, medicaments and biological substances
CPT/HCPCS: 99283